=== PATIENT | female | born 1985 | race Caucasian/White ===

== ENCOUNTER → 2016-11-20 | Outpatient (CLI) | payer OTHER ==
[~2016-11-20] MED LIST: ANTIVERT 25MG25 MG PO; BIRTH CONTROL; VALIUM 2MG T2 MG/TAB PO; ZOLOFT 100MG100 MG PO
== END ==
LOC: COL.RAD 09:27
DX: N92.0 Excessive and frequent menstruation with regular cycle (principal)

== ENCOUNTER 2018-12-12 14:16 | Emergency (ER) | payer OTHER ==
[~2018-12-12] VITALS: Ht 172.7 cm; Wt 79.5 kg
[2018-12-12 14:20] VITALS: TEMP 97.9
[2018-12-12] MEDS ORDERED: BUSPAR DIVIDOSE15 MG PO (14:32)
[2018-12-12] MEDS ORDERED: NATURAL MAGNES200 MG PO (14:32)
[2018-12-12] MEDS ORDERED: LATUDA20 MG PO (14:32)
[2018-12-12] MEDS ORDERED: MIRALAX PA17 GM/Dose PO (14:33)
[2018-12-12] MEDS ORDERED: COLACE 100100 MG/CAP PO (14:33)
[2018-12-12 15:18] LABS: BASO # 0.1 (0.0-0.2); BASO % 0.6 % (0.0-2.0); EOS # 0.2 (0.0-0.7); EOS % 2.6 % (0-4.0); GRAN # 6.1 (1.4-6.5); GRAN % 65.5 % (42.2-75.2); HEMATOCRIT 40.9 % (37.0-47.0); HEMOGLOBIN 13.9 g/dl (12.5-16.0); LYMPH # 2.4 (1.2-3.4); LYMPH % 25.5 % (20.0-51.0); MEAN CELL VOLUME 92 fl (80.0-100.0); MEAN CORPUSCULAR HEMOGLOBIN 31 pg (27.0-31.0); MEAN CORPUSCULAR HGB CONC 34 g/dl (33.0-37.0); MEAN PLATELET VOLUME 11.1 fl (7.4-10.4); MONO # 0.5 (0.1-0.6); MONO % 5.7 % (1.7-9.3); PLATELET COUNT 243 K/mm3 (130-400); RED BLOOD COUNT 4.43 M/mm3 (4.10-5.30); REDCELL DISTRIBUTION WIDTH-CV 12.6 % (11.5-14.5)
[2018-12-12 15:27] LABS: ALBUMIN 4.2 gm/dL (3.5-5.0); BILIRUBIN,TOTAL 0.8 mg/dL (0.0-1.0); CALCIUM 9.3 mg/dL (8.4-10.2); CREATININE, serum 0.88 mg/dL (0.52-1.25); POTASSIUM 4.1 mmol/L (3.4-5.0); TOTAL PROTEIN 7.2 gm/dL (6.4-8.2)
[2018-12-12 17:18] LABS: COLLECTION METHOD CLEAN CATCH
[2018-12-12 17:26] LABS: MUCOUS Present /lpf; PH 7 (5-8); URINE APPEARANCE Clear; URINE BACTERIA None Seen /hpf; URINE BILIRUBIN Negative (NEGATIVE); URINE BLOOD Negative (NEGATIVE); URINE COLOR Yellow; URINE GLUCOSE Negative (NEGATIVE); URINE KETONE Negative (NEGATIVE); URINE LEUKOCYTE ESTERASE Negative (NEGATIVE); URINE NITRATE Negative (NEGATIVE); URINE PROTEIN(semi-quant) Negative (NEGATIVE); URINE RBC 0-2 /hpf; URINE UROBILINOGEN Negative (NEGATIVE)
[2018-12-12] MEDS ORDERED: PERCOCET 325 MG1 TA2 PO (17:37)
[2018-12-12] MEDS ORDERED: ZOFRAN ODT8 MG PO (18:24)
[2018-12-12 18:35] VITALS: BP 119/77
[2018-12-12 18:43] VITALS: PULSE 82
== END 2018-12-12 18:43 | disposition home or self-care (01) ==
LOC: COL.ER 14:16
PROVIDERS: Emergency Medicine
DX: K85.90 Acute pancreatitis without necrosis or infection, unspecified (principal); F43.10 Post-traumatic stress disorder, unspecified; F41.9 Anxiety disorder, unspecified; Z90.49 Acquired absence of other specified parts of digestive tract; Z98.51 Tubal ligation status
CPT/HCPCS: J1885; J2270; J2405; J7030; Q9967

== ENCOUNTER 2019-06-30 13:03 | Emergency (ER) | payer OTHER ==
[~2019-06-30] VITALS: Ht 172.7 cm; Wt 81.8 kg
[~2019-06-30 13:03] MED LIST changes: +BUSPAR DIVIDOSE15 MG PO; +COLACE 100100 MG/CAP PO; +LATUDA20 MG PO; +MIRALAX PA17 GM/Dose PO; +NATURAL MAGNES200 MG PO; +PERCOCET 325 MG1 TA2 PO; +ZOFRAN ODT8 MG PO
[2019-06-30 13:10] VITALS: TEMP 97.7
[2019-06-30 16:31] VITALS: BP 120/69; PULSE 86
== END 2019-06-30 16:24 | disposition home or self-care (01) ==
LOC: COL.ER 13:03
DX: N99.820 Postprocedural hemorrhage of a genitourinary system organ or structure following a genitourinary system procedure (principal)

== ENCOUNTER 2020-08-28 13:39 | Emergency (ER) | payer OTHER ==
[~2020-08-28] VITALS: Ht 172.7 cm; Wt 72.7 kg
[2020-08-28 13:44] VITALS: BP 116/55; TEMP 97.6
[2020-08-28] MEDS ORDERED: WELLBUTRIN XL300 M1 PO (14:13)
[2020-08-28] MEDS ORDERED: DESYREL 50MG50 MG PO (14:13)
[2020-08-28 16:12] VITALS: PULSE 77
== END 2020-08-28 16:12 | disposition home or self-care (01) ==
LOC: COL.ER 13:39
DX: Z20.828 Contact with and (suspected) exposure to other viral communicable diseases (principal)

== ENCOUNTER 2021-07-03 10:49 | Emergency (ER) | payer OTHER ==
[~2021-07-03] VITALS: Ht 172.7 cm; Wt 65.9 kg
[~2021-07-03 10:49] MED LIST changes: +DESYREL 50MG50 MG PO; +WELLBUTRIN XL300 M1 PO
[2021-07-03 11:25] VITALS: BP 124/47; TEMP 97.7
[2021-07-03] MEDS ORDERED: ZOFRAN ODT4 MG PO (12:55)
[2021-07-03 13:06] VITALS: PULSE 70
== END 2021-07-03 13:06 | disposition home or self-care (01) ==
LOC: COL.ER 10:49
DX: R11.2 Nausea with vomiting, unspecified (principal); Z20.822 Contact with and (suspected) exposure to COVID-19; Z87.891 Personal history of nicotine dependence